=== PATIENT | female | born 1990 | race Caucasian/White ===

== ENCOUNTER 2019-10-14 07:53 | Inpatient (IN) ==
[2019-10-14] MEDS ORDERED: GENTAMICIN CONSULT ACTIVE PRN (09:57)
[2019-10-14] MEDS ORDERED: miSOPROStoL 25 MCG TAB PV ONE (10:00)
[2019-10-14] MEDS ORDERED: OXYTOCIN 30 UNITS/500 ML BAG IV PRN ×3 (10:00→23:35)
--- NOTE | 2019-10-14 10:06 | Obstetrical Progress Note ---
Date of Service October 14, 2019 Assessment & Plan Admission and Anticipated Discharge Date Admission Date: October 14, 2019 Subjective Pt here for induction of labor P has hx of VSD Delivered last infant w/o complication her at [facility] Has seen MFM through this and is in touch with her cardiologists Pt receives antibx. before dental procedures so I have decided to treat her endocarditics prophylactically she has hx of PCN and Unasyn allergies which according to pt was a rash. No anaphylaxis. Her chart however mentions ampicillin as an allergy. Pt denies that. she is convinced its PCN. We have discussed 4-10% cross reactivity/ sensitivity Pt is agreeable to trial of ampicillin spoke to pharmacy About this FHR; CAT1 Ctx; Minimal VE;2-3/50/-3 bedside sono; VT Results & Data ([facility]) Vital Signs (Past 12 Hours) Vital Signs Temp Pulse Resp BP 10/14/19 08:01 36.6 C 94 H 20 116/60
[2019-10-14] MEDS ORDERED: miSOPROStoL 50 MCG TAB PO ONE (10:15)
[2019-10-14 10:28] LABS: Hematocrit (blood only) 36.8 % (37-47); Hemoglobin 12.6 g/dL (12.0-16.0); Mean Corpuscular Hemoglobin 33.7 pg (25-34); Mean Corpuscular Volume 98.4 fL (80-100); Mean Platelet Volume 10.1 fL (7.4-10.4); Platelet Count 166 K/uL (130-400); RDW Coefficient of Variation 13.7 % (11.5-14.5); RDW Standard Deviation 49.1 fL (36.4-46.3); Red Blood Count 3.74 M/uL (4.2-5.4); White Blood Count 8.01 K/uL (4.8-10.8)
[2019-10-14 10:37] LABS: Mean Corpuscular Hgb Conc 34.2 g/dL (32-36)
[2019-10-14] MEDS ORDERED: AMPICILLIN 2,000 MG in SODIUM CHLOR 0.9% AD-VAN 100 ML IV ONE (10:45)
--- NOTE | 2019-10-14 10:49 | Pharmacy Report ---
Pharmacy Abx Dose Short Note - Date of Service October 14, 2019 - Assessment & Plan Assessment 29 year old F receiving gentamicin for prophylaxis of endocarditis d/t hx of VSD Day # 1 of antimicrobial therapy. Plan Pharmacy consulted for gentamicin dosing in intrapartum setting. Patient with history of VSD, typically receives antibiotics prior to dental procedures for endocarditis prophylaxis. Appears to be limited data on antibiotic use/dosing recommendations in this specific patient population. Provider however would like to use broad spectrum antibiotics prophylactically prior to delivery * Gentamicin dosed at 480 mg/kg q 24 hrs - dosed upon actual body weight. Currently there is more data to support the use of extended interval dosing in this patient population * Gentamicin levels do not need to be monitored in patient receiving short course of therapy (</=72 hrs) as long as they have normal renal function. Scr ordered on admission and CrCl >100 ml/min * Anticipate abx's to be discontinued once however will follow up Pharmacy will continue to follow and will adjust dose/frequency as necessary. Thank you.
[2019-10-14] MEDS ORDERED: GENTAMICIN SULFATE 480 MG in DEXTROSE 5% 100 ML IV SCH (11:00)
[2019-10-14 11:06] LABS: Creatinine Clr Calc Pharmacy 218.1 ml/min; Est GFR (African American) > 150.0; Est GFR (Non-African American) 134.5
[2019-10-14] MEDS: LACTATED RINGER'S 1,000 ML IV PRN ×3 (11:52→19:50)
[2019-10-14] MEDS ORDERED: BUPIVACAINE 0.25% 30 ML VIAL ONE (18:38)
[2019-10-14] MEDS ORDERED: ePHEDrine sulfate 50 MG/ML AMP ONE (18:38)
[2019-10-14] MEDS ORDERED: fentaNYL 2MCG/ML ROPIV 1.25MG/ML 100 ML BAG EPI ONE (18:39)
[2019-10-14] MEDS ORDERED: fentaNYL citrate 100 MCG/2 ML VIAL ONE (18:39)
--- NOTE | 2019-10-14 18:56 | Anesthesiology Consultation ---
Date of Service October 14, 2019 Assessment & Plan (1) Encounter for pre-operative examination: Chart Review Chart Review: Acceptable Risk for Labor Epidural History Height/Weight Height: 5 ft 6 in Weight: 97.522 kg Allergies Allergy/AdvReac Type Severity Reaction Status Date / Time Penicillins Allergy Mild Hives Verified 10/14/19 10:13 sulbactam Allergy Mild . Verified 12/04/18 15:50 Estrogens AdvReac Unknown mini stroke Verified 10/14/19 10:14 Medications Home Medications Medication Instructions Recorded Confirmed Last Taken Probiotic 0 mmu cells PO DAILY 12/04/18 10/14/19 10/13/19 21:00 aspirin 81 mg PO DAILY 12/04/18 10/14/19 10/13/19 21:00 omeprazole 10 mg PO DAILY 10/14/19 10/14/19 10/13/19 21:00 vit-iron fum-folic ac 1 tab PO DAILY 10/14/19 10/14/19 10/13/19 21:00 [ Vitamin] Active Medications Generic Name Dose Route Start Last Admin Trade Name Masoodq PRN Reason Stop Dose Admin Lactated Ringer's 1,000 mls @ 125 mls/hr 10/14/19 10:00 10/14/19 18:48 Lr IV 10/16/19 09:59 999 mls/hr .Q8H PRN Administration L&D Protocol Protocol Oxytocin 30 units in 500 mls @ 2 mls/hr 10/14/19 15:28 10/14/19 18:35 Pitocin IV 11/13/19 15:27 0.12 units/hr .Q24H PRN 2 mls/hr Labor Induction/Augmentation Administration Protocol 0.12 UNITS/HR Past Medical History Medical History Anxiety Cardiac murmur Chronic back pain Depression Ectopic Fusion of spine X3 FOR SCOLIOSIS Migraine Osteoarthritis PFO (patent foramen ovale) Scoliosis Stroke FOUND ON MRI JANUARY 2018. MILD SHORT TERM MEMORY LOSS, INTERMITTENT LEFT HAND NUMBNESS AND SHARP PAINS AT TIMES. SVT (supraventricular tachycardia) CARDIAC ABLATION 1998 POSSIBLE PERIODIC EPISODES, STATES HEART WILL RACE AT TIMES AND SOB WITH THE "EPISODES" Transient ischemic attack (TIA) Having current symptoms consistent with this. MRI on 02/09 shows chronic cerebellar infarcts VSD (ventricular septal defect) FOLLOWS WITH DR. CHOWDHURY Past Surgical History Surgical History History of cardiac radiofrequency ablation ~1998. ARGELIA ORO Previous back surgery S/P VSD repair Social History Smoking Status: Never smoker Hx Alcohol Use: Yes Alcohol type: beer alcohol intake frequency: a few times a week Hx Substance Use: No substance use type: does not use Physical Exam Vital Signs Last Vital Signs Temp 37.0 C 10/14/19 18:38 Pulse 78 10/14/19 18:38 Resp 20 10/14/19 18:38 BP 103/59 L 10/14/19 18:38 Testing Laboratory Results 10/14/19 10:10 10/14/19 10:36
[2019-10-14] MEDS ORDERED: NALOXONE HCL 0.4 MG/1 ML VIAL/CARP IV PRN (19:19)
[2019-10-14] MEDS ORDERED: NALOXONE HCL 1 MG in SODIUM CHLORIDE 0.9% 1000ML 1,000 ML IV PRN (19:19)
[2019-10-14] MEDS ORDERED: fentaNYL 2MCG/ML ROPIV 1.25MG/ML 100 ML BAG EPI PRN (19:19)
[2019-10-14] MEDS ORDERED: ePHEDrine sulfate 50 MG/ML AMP IV PRN (19:19)
[2019-10-14] MEDS ORDERED: ONDANSETRON INJ 2 MG/ML 2 ML VIAL IV PRN (19:19)
--- NOTE | 2019-10-14 22:14 | Obstetrical Progress Note ---
Date of Service October 14, 2019 Assessment & Plan Admission and Anticipated Discharge Date Admission Date: October 14, 2019 Subjective Induction for prolonged gestation Doing well FHR; CAT! Ctx 3-4mins VE; 4-5/50/-2 Pit; 8mu AROM with Amnio. hook- Clear fluid Continue induction Results & Data ([facility]) Vital Signs (Past 12 Hours) Vital Signs Temp Pulse Resp BP Pulse Ox 10/14/19 22:08 79 94 10/14/19 22:06 80 97 10/14/19 22:03 76 94 10/14/19 22:01 83 100/62 93 10/14/19 21:57 75 94 10/14/19 21:56 83 96 10/14/19 21:51 74 94 10/14/19 21:46 81 104/57 L 94 10/14/19 21:45 75 93 10/14/19 21:41 73 97 10/14/19 21:39 84 94 10/14/19 21:36 77 95 10/14/19 21:32 86 94 10/14/19 21:31 84 95 10/14/19 21:29 83 104/59 L 10/14/19 21:27 78 94 10/14/19 21:26 68 95 10/14/19 21:21 83 95 10/14/19 21:17 86 94 10/14/19 21:16 81 95 10/14/19 21:15 76 105/56 L 10/14/19 21:11 88 96 10/14/19 21:07 80 94 10/14/19 21:06 81 95 10/14/19 21:01 81 96 10/14/19 20:59 80 109/59 L 10/14/19 20:58 87 94 10/14/19 20:56 84 97 10/14/19 20:51 83 97 10/14/19 20:46 80 112/58 L 96 10/14/19 20:41 72 94 10/14/19 20:36 67 97 10/14/19 20:33 90 94 10/14/19 20:31 81 97 10/14/19 20:30 78 104/60 10/14/19 20:26 86 98 10/14/19 20:21 89 98 10/14/19 20:16 81 107/60 98 10/14/19 20:13 79 93 10/14/19 20:11 80 94 10/14/19 20:07 83 94 10/14/19 20:06 85 96 10/14/19 20:01 88 101/62 94 10/14/19 19:56 88 95 10/14/19 19:51 81 97 10/14/19 19:46 82 96 10/14/19 19:44 91 H 100/58 L 10/14/19 19:41 82 96 10/14/19 19:36 86 96 10/14/19 19:31 83 97 10/14/19 19:29 88 108/56 L 10/14/19 19:26 83 109/57 L 95 10/14/19 19:24 84 94 10/14/19 19:23 80 114/56 L 10/14/19 19:21 82 113/58 L 96 10/14/19 19:17 86 92/64 L 10/14/19 19:16 87 98 10/14/19 19:14 85 114/56 L 10/14/19 19:11 93 H 132/59 L 99 10/14/19 19:06 82 99 10/14/19 19:00 36.8 C 10/14/19 18:38 37.0 C 78 20 103/59 L 10/14/19 14:38 36.6 C 80 20 118/56 L 10/14/19 11:04 36.9 C 77 20 111/59 L
[2019-10-14] MEDS ORDERED: METHYLERGONOVINE MALEATE 0.2 MG/ML AMP ONE (23:23)
[2019-10-14] MEDS ORDERED: miSOPROStoL 200 MCG TAB ONE (23:25)
[2019-10-14] MEDS ORDERED: HYDROCORTISONE ACETATE 25 MG SUPP PR PRN (23:35)
[2019-10-14] MEDS ORDERED: METHYLERGONOVINE MALEATE 0.2 MG/ML AMP IM ONE (23:35)
[2019-10-14] MEDS ORDERED: bisacodyL 10 MG SUPP PR PRN (23:35)
[2019-10-14] MEDS ORDERED: SUPERCREAM 0.870% 15 GM JAR EXT PRN (23:35)
[2019-10-14] MEDS ORDERED: BENZOCAINE 20% AER SPR 82.5 GM CAN EXT PRN (23:35)
[2019-10-14] MEDS ORDERED: ACETAMINOPHEN 325 MG TAB PO PRN (23:35)
[2019-10-14] MEDS ORDERED: IBUPROFEN 600 MG TAB PO PRN (23:35)
[2019-10-14] MEDS ORDERED: DIPHTHERIA/TETANUS/PERTUSSIS 0.5 ML SYR/VIAL IM ONE (23:35)
[2019-10-14] MEDS ORDERED: miSOPROStoL 200 MCG TAB PR ONE (23:35)
[2019-10-15] MEDS ORDERED: AMOXICILLIN 500 MG CAP PO ONE (00:30)
--- NOTE | 2019-10-15 01:31 | Delivery Summary ---
DATE OF OPERATION: 10/14/2019 The patient delivered a live infant female in left occiput anterior presentation. There was body cord which was easily reduced. Infant was delivered, placed on mother's abdomen. Cord clamp was performed after 1 minute. Infant's Apgars 9 and 9, weight is pending via pediatrics. Placenta was spontaneously delivered. Estimated blood loss was about 450 mL. Inspection of the perineum shows a first-degree midline laceration. Vicryl suture was placed for hemostasis. Rectal exam shows no sutures in the rectum. The patient is doing well. All instruments were removed from the vagina including retractors, needles, sutures and accounted for x2. Baby and mother are doing well in recovery. I attest to the content of the Intraoperative Record and any orders documented therein. Any exception s are noted below.
--- NOTE | 2019-10-15 04:44 | Anesthesia Procedure Note ---
Date of Service October 15, 2019 Anesthesia Post Epidural Note Vital Signs Vital Signs: Temp Pulse Resp BP Pulse Ox 36.8 C 76 20 112/54 L 95 10/14/19 19:00 10/15/19 01:45 10/14/19 18:38 10/15/19 01:45 10/14/19 23:21 Pain Intensity Abdomen: Pain Intensity: 0 Notes Mental Status: alert / awake / arousable and participated in evaluation Nausea / Vomiting: adequately controlled Pain: adequately controlled Airway Patency, RR, SpO2: stable & adequate BP & HR: stable & adequate Hydration State: stable & adequate Neuraxial Anesthesia: was administered and sensory block is resolving Anesthetic Complications: no major complications apparent Epidural: Removed without complications and With tip intact
[2019-10-15 06:18] LABS: Hematocrit (blood only) 36.6 % (37-47); Hemoglobin 12.5 g/dL (12.0-16.0); Mean Corpuscular Hemoglobin 33.2 pg (25-34); Mean Corpuscular Hgb Conc 34.2 g/dL (32-36); Mean Corpuscular Volume 97.3 fL (80-100); Mean Platelet Volume 10.1 fL (7.4-10.4); Platelet Count 157 K/uL (130-400); RDW Coefficient of Variation 13.7 % (11.5-14.5); RDW Standard Deviation 48.4 fL (36.4-46.3); Red Blood Count 3.76 M/uL (4.2-5.4); White Blood Count 10.83 K/uL (4.8-10.8)
[2019-10-15 06:54] LABS: Creatinine Clr Calc Pharmacy 234.1 ml/min; Est GFR (African American) > 150.0; Est GFR (Non-African American) 137.7
--- NOTE | 2019-10-15 08:15 | History & Physical Report ---
Date of Service October 15, 2019 Delivery Information [place] Information Weight: 3.81 kg Length (inches): 5 ft 6 in Sex: F Race: White Date of : 10[birth year] Time of : 23:19 Mother's Information : 3 Para: 1 Physical Exam Physical Exam: Constitutional: No obvious dysmorphic or syndromic features. Comfortable, normal appearance and normal tone; Normal cry. Normal color. scores were 9 at 1 minute and 9 at 5 minutes. AGA female. Eyes: Normal red reflex bilaterally. ENMT: Ears: Normal ears. Nose: nares patent. Mouth: no lip deformity, no palate deformity, no cleft lip and no cleft palate. Respiratory: Not tachypneic. Auscultation: lungs clear to auscultation bilaterally, no rales Cardiovascular: Rate/Rhythm: regular rate and regular rhythm Heart Sounds: no gallop and no murmurs appreciated. Vessels: normal femoral and brachial pulses bilaterally. Gastrointestinal (Abdomen): Inspection/Auscultation: Normal abdominal appearance. Normal bowel sounds; no umbilical stump abnormality Percussion/Palpation: abdomen soft; no palpable abdominal masses; no hepatomegaly and no splenomegaly Anus patent. Musculoskeletal: Head/Neck: No Caput. Anterior fontanelle small, open and flat . No cephalohematoma Spine: no obvious spine abnormality. No sacrococcygeal dimples. Extremities: Clavicles intact. Normal hips; no hip clicks. No cyano sis. Skin: normal color; no jaundice, no pallor and no abnormal lesions. No cyanosis appreciated so far in the nursery. Neurologic: Reflexes: normal Dre reflex, normal suck and normal grasp. Normal tone. Genitourinary: Normal male genitalia. Testes descended bilaterally. Testes symmetric.
[2019-10-15] MEDS: PRENATAL VITAMIN 1 TAB PO SCH (08:35)
[2019-10-15] MEDS: DOCUSATE SODIUM 100 MG CAP PO SCH ×2 (08:35→20:09)
--- NOTE | 2019-10-15 14:48 | Obstetrical Progress Note ---
Date of Service October 15, 2019 Assessment & Plan Admission and Anticipated Discharge Date Admission Date: October 14, 2019 Subjective Patient is seen and examined. She feels well, no complaints. Ambulating without dizziness Voiding without difficulty Tolerating regular diet with out N&V Bleeding is minimal No fever/ chills/ CP/ SOB/ N&V/ Leg pain Breast feeding without problems Vital Signs Temp Pulse Resp BP Pulse Ox 10/15/19 10:50 36.5 C 84 20 110/72 98 10/15/19 07:40 36.8 C 87 18 100/67 95 10/15/19 03:05 37.1 C 90 18 115/72 Lab Results 10/14/19 10/14/19 10/15/19 Range/Units 10:10 10:36 06:06 WBC 8.01 (4.8-10.8) K/uL RBC 3.74 L (4.2-5.4) M/uL Hgb 12.6 (12.0-16.0) g/dL Hct 36.8 L (37-47) % MCV 98.4 (80-100) fL MCH 33.7 (25-34) pg MCHC 34.2 (32-36) g/dL RDW Std Deviation 49.1 H (36.4-46.3) fL RDW Coeff of Tye 13.7 (11.5-14.5) % Plt Count 166 (130-400) K/uL MPV 10.1 (7.4-10.4) fL Creatinine 0.44 L 0.41 L (0.6-1.2) mg/dl Est Cr Clr Drug Dosing 218.1 234.1 ml/min Est GFR ( Amer) > 150.0 > 150.0 Est GFR (Non-Af Amer) 134.5 137.7 10/15/19 Range/Units 06:06 WBC 10.83 H (4.8-10.8) K/uL RBC 3.76 L (4.2-5.4) M/uL Hgb 12.5 (12.0-16.0) g/dL Hct 36.6 L (37-47) % MCV 97.3 (80-100) fL MCH 33.2 (25-34) pg MCHC 34.2 (32-36) g/dL RDW Std Deviation 48.4 H (36.4-46.3) fL RDW Coeff of Tye 13.7 (11.5-14.5) % Plt Count 157 (130-400) K/uL MPV 10.1 (7.4-10.4) fL Creatinine (0.6-1.2) mg/dl Est Cr Clr Drug Dosing ml/min Est GFR ( Amer) Est GFR (Non-Af Amer) PE: General: Alert, orientedx3, NAD Abd: soft, NT, fundus firm, below Umbilicus Perineum intact, Lochia rubra minimal Ext; NT, no edema AP: 29 yo s/p , ppd# 1 VSS Afebrile doing well Continue routine care All questions were answered D/C home tomorrow Results & Data ([facility]) Vital Signs (Past 12 Hours) Vital Signs Temp Pulse Resp BP Pulse Ox 10/15/19 10:50 36.5 C 84 20 110/72 98 10/15/19 07:40 36.8 C 87 18 100/67 95 10/15/19 03:05 37.1 C 90 18 115/72
[2019-10-15] MEDS: ACETAMINOPHEN 325 MG TAB PO PRN (15:39)
[2019-10-15] MEDS ORDERED: bisacodyL 5 MG TABEC PO SCH (20:00)
[2019-10-16] MEDS: ACETAMINOPHEN 325 MG TAB PO PRN (05:30)
[2019-10-16 06:17] LABS: Hematocrit (blood only) 34.6 % (37-47); Hemoglobin 11.8 g/dL (12.0-16.0)
[2019-10-16 06:50] LABS: Creatinine Clr Calc Pharmacy 228.5 ml/min; Est GFR (African American) > 150.0; Est GFR (Non-African American) 136.6
[2019-10-16] MEDS: DOCUSATE SODIUM 100 MG CAP PO SCH (09:12)
[2019-10-16] MEDS: PRENATAL VITAMIN 1 TAB PO SCH (09:12)
--- NOTE | 2019-10-16 10:20 | Obstetrical Progress Note ---
Date of Service October 16, 2019 Assessment & Plan (1) Normal course: Admission and Anticipated Discharge Date Admission Date: October 14, 2019 Review of Systems Review of Systems: All systems reviewed & are unremarkable except as noted in HPI & below Physical Exam Constitutional: WD/WN, vitals as above well developed and well nourished Eyes: PERRL, conjunctivae normal, anicteric sclerae Neck: trachea midline, no thyromegaly Respiratory: normal respiratory effort, lungs clear to auscultation Auscultation: no crackles, no rales and no wheezes Cardiovascular: RRR, no murmur, no edema Gastrointestinal (Abdomen): normal bowel sounds, soft, nontender, no hepatosplenomegaly Uterus is below umbilicus Musculoskeletal: no cyanosis or clubbing, extremities motor strength 5/5 Skin: no rashes, warm and dry Neurologic: patellar DTR's 2+ bilat, sensation intact Psychiatric: A+Ox3, euthymic affect Genitourinary: normal external appearance Results & Data ([facility]) Vital Signs (Past 12 Hours) Vital Signs Temp Pulse Resp BP Pulse Ox 10/16/19 07:45 36.5 C 75 18 100/65 95 10/15/19 23:10 36.9 C 85 16 116/69 96
== END 2019-10-16 13:10 | disposition home or self-care (01) | DRG 807 ==
LOC: 4S1 07:53 → 4S2 10-15 04:07